=== PATIENT | female | born 1990 | race African-American/Black ===

== ENCOUNTER 2017-03-28 13:50 | Emergency (ER) | payer MEDICAID, OTHER ==
[~2017-03-28] VITALS: Ht 160 cm; Wt 90.7 kg
[~2017-03-28 13:50] MED LIST: IBUPROFEN600 MG ORAL; LIDOCAINE VISCO20 ML PO; PENICILLIN V P500 MG PO
[2017-03-28] MEDS ORDERED: PredniSONE 20mg tab ORAL ONE (14:45)
[2017-03-28] MEDS ORDERED: AUGMENTIN 500-1 EACH ORAL (14:48)
[2017-03-28] MEDS ORDERED: PREDNISONE20 MG ORAL (14:48)
[2017-03-28 15:05] VITALS: BP 113/62
--- NOTE | 2017-03-28 18:53 | Emergency Room Report ---
History of Present Illness General Chief Complaint: Sore Throat Source: Patient Present Illness HPI The patient is a 26 old female presenting with sore throat and fever for the past 2 days. She denies any sick contacts or recent travel. She states that she has tonsillitis several times every year and has seen an ENT who did not want to perform tonsillectomy. Pain is described as a 10 out of 10 dull ache to the back of the throat and does not radiate. It worse with swallowing. She denies any other symptoms including N, V, neck pain/stiffness, AGUILAR, rash, ear pain, SOB Allergies: Coded Allergies: No Known Allergies (Unverified , 01/10/16) Patient History Past Medical History: see triage record Pertinent Family History: none Last Menstrual Period: now Now: No Reviewed Nursing Documentation: PMH: Agreed, PSxH: Agreed Nursing Documentation-PMH Past Medical History: No Stated History Review of Systems All Other Systems: negative except mentioned in HPI Physical Exam Vital Signs Date Time Temp Pulse Resp B/P Pulse Ox O2 Delivery O2 Flow Rate FiO2 03/28/17 13:55 102.4 119 20 126/79 97 Room Air Sp02 EP Interpretation: reviewed, normal General Appearance: no apparent distress, alert, GCS 15, non-toxic Head: normocephalic, atraumatic Eyes: bilateral eye PERRL, bilateral eye normal inspection ENT: hearing grossly normal, no angioedema, normal voice, uvula midline, moist mucus membranes, tonsillar swelling, pharyngeal erythema Neck: full range of motion, supple/symm/no masses Respiratory: chest non-tender, lungs clear, normal breath sounds, no wheezing, speaking full sentences Cardiovascular #1: regular rate, rhythm, no edema Musculoskeletal: back normal, gait/station normal, normal range of motion, non- tender Neurologic: alert, oriented x3, responsive, motor strength/tone normal, sensory intact, speech normal Psychiatric: judgement/insight normal, memory normal, mood/affect normal, no suicidal/homicidal ideation Skin: normal color, no rash, warm/dry, well hydrated Lymphatic: adenopathy - cervical Medical Decision Making PA Attestation Dr. Rodriguez is my supervising physician. Patient management was discussed with my supervising physician Diagnostic Impression: Primary Impression: Pharyngitis, acute Qualified Codes: J02.9 - Acute pharyngitis, unspecified ER Course The patient is a 26 old female presenting with sore throat and fever Differential diagnosis include but not limited to pharyngitis, sinusitis, AOM, bronchitis, PNA Physical exam: Pt is febrile. No apparent distress HEENT exam: There is bilateral tonsillar edema, erythema. Uvula midline. Moist mucous membranes. There is bilateral cervical lymphadenopathy. Lungs are clear to auscultation bilaterally Skin is warm and dry. No rash The pt is given steroids, motrin, and amoxicillin in the ED The pt will be WA'ed home with prescription for steroids and Augmentin due to recurrent pharyngitis. She will need to see ENT for further evaluation. Given ER precautions. Patient will followup with primary care Last Vital Signs Date Time Temp Pulse Resp B/P Pulse Ox O2 Delivery O2 Flow Rate FiO2 03/28/17 15:05 101.0 110 18 113/62 99 Room Air Status: improved Disposition: HOME, SELF-CARE Condition: Improved Scripts Prednisone* (PREDNISONE*) 20 Mg Tablet 40 MG ORAL DAILY, #10 TAB Prov: DONNA DONOVAN 03/28/17 Amoxicillin/Potassium Clav 500-125 Tablet* (AUGMENTIN 500-125 TABLET*) 1 Each Tablet 1 TAB ORAL THREE TIMES A DAY, #21 TAB Prov: DONNA DONOVAN. 03/28/17 Referrals: KAYLEIGH GRANDA,REFERRING Patient Instructions: Pharyngitis Additional Instructions: I discussed my findings with the patient. All questions and concerns have been answered. Treatment and medication compliance have been addressed. I advised the patient that they need to follow up with PMD in 3-5 days. Return to ED if pain remains or worsens, cough worsens or remains, you notice blood in your sputum, you notice wheezing, you experience a fever, or if needed for any reason. Patient verbalized understanding of discharge instructions. DONNA DONOVAN Mar 28, 2017 18:53
== END 2017-03-28 15:05 | disposition home or self-care (01) ==
LOC: EMR 14:45
DX: J02.9 Acute pharyngitis, unspecified (principal); R50.9 Fever, unspecified
CPT/HCPCS: 99284

== ENCOUNTER 2018-04-11 08:52 | Emergency (ER) | payer SELFPAY ==
[~2018-04-11] VITALS: Ht 160 cm; Wt 93.9 kg
[~2018-04-11 08:52] MED LIST changes: +AUGMENTIN 500-1 EACH ORAL; +PREDNISONE20 MG ORAL
[2018-04-11] MEDS ORDERED: NKM (08:57)
[2018-04-11 09:04] VITALS: BP 128/69
[2018-04-11] MEDS ORDERED: Morphine Sulfate 4mg/ml Inj IVP ONE (09:15)
[2018-04-11 09:39] LABS: BASOPHILS % (AUTO) 0.6 % (0.0-2.0); EOSINOPHILS % (AUTO) 0.7 % (0.0-3.0); HEMATOCRIT 46.4 % (37.0-47.0); MEAN CORPUSCULAR VOLUME 82 FL (80-99); MONOCYTES % (AUTO) 5.5 % (1.0-10.0); NEUTROPHILS % (AUTO) 76.3 % (45.0-75.0); PLATELET COUNT 427 K/UL (150-450); RED BLOOD COUNT 5.65 M/UL (4.20-5.40); RED CELL DISTRIBUTION WIDTH 11.5 % (11.6-14.8); WHITE BLOOD COUNT 12.6 K/UL (4.8-10.8)
[2018-04-11 09:53] LABS: ANION GAP 8 mmol/L (5-15); BLOOD UREA NITROGEN 14 mg/dL (7-18); CALCIUM 9.6 MG/DL (8.5-10.1); CARBON DIOXIDE 25 MMOL/L (21-32); CHLORIDE 105 MMOL/L (98-107); CREATININE 1.1 MG/DL (0.55-1.30); POTASSIUM 3.7 MMOL/L (3.5-5.1); SODIUM 138 MMOL/L (136-145)
[2018-04-11 09:56] LABS: APPEARANCE,URINE SLIGHTLY CLOUDY; BILIRUBIN, URINE NEGATIVE (NEGATIVE); COLOR,URINE PALE YELLOW; GLUCOSE, URINE (UA) NEGATIVE (NEGATIVE); KETONES,URINE NEGATIVE (NEGATIVE); LEUKOCYTE ESTERASE ,URINE NEGATIVE (NEGATIVE); NITRITE,URINE NEGATIVE (NEGATIVE); PH,URINE 7 (4.5-8.0); PROTEIN,URINE NEGATIVE (NEGATIVE); UROBILINOGEN,URINE NORMAL MG/DL (0.0-1.0)
[2018-04-11 09:58] LABS: ALANINE AMINOTRANSFERASE 21 U/L (12-78); ALBUMIN 3.6 G/DL (3.4-5.0); ALBUMIN/GLOBULIN RATIO 0.7 (1.0-2.7); ALKALINE PHOSPHATASE 57 U/L (46-116); ASPARTATE AMINO TRANSFERASE 14 U/L (15-37); BILIRUBIN,TOTAL 0.4 MG/DL (0.2-1.0)
[2018-04-11] MEDS ORDERED: Isovue-300 100ml vial INJ PRN (10:00)
[2018-04-11 10:59] VITALS: BP 107/56
--- NOTE | 2018-04-11 11:33 | Diagnostic Imaging Report ---
Clinical Indication: Lower abdominal pain, vomiting, nausea Technique: No oral contrast utilized, per emergency room physician request IV administration nonionic contrast. Venous phase spiral acquisition obtained through the abdomen and pelvis. Multiplanar reconstructions were generated. Total dose length product 1850.84 mGycm. CTDIvol(s) 17.73,17.93 mGy. Dose reduction achieved using automated exposure control Comparison: none Findings: Normal appendix. Equivocal mild wall thickening of the distal transverse and descending colon, most likely artifact of under distention however, there is some inflammatory change surrounding the distal sigmoid colon and posterior to the uterus. The uterus and adnexal structures themselves appear unremarkable. No small bowel distention. There is trace free pelvic fluid. No other free or loculated intraperitoneal air or fluid is evident. Distal esophagus, stomach, duodenum are unremarkable. The liver, gallbladder, bile ducts, pancreas, spleen, adrenals, kidneys, ureters, bladder are all unremarkable. No pelvic mass or adenopathy. No retroperitoneal or mesenteric mass or adenopathy. The included lung bases are clear. The bones are unremarkable.. Impression: Equivocal wall thickening of the mid transverse through the sigmoid colon. Probably an artifact of under distention. However, there is some inflammatory change in the pelvic fat noted so this could indicate sigmoid colitis. This could also be related to inflammation of the pelvic viscera, although the uterus and ovaries themselves appear unremarkable. Correlate with clinical findings, consider pelvic sonography for further evaluation if indicated clinically No other acute or significant abnormality The CT scanner at [facility] is accredited by the [employer] and the scans are performed using protocols designed to limit radiation exposure to as low as reasonably achievable to attain images of sufficient resolution adequate for diagnostic evaluation.
[2018-04-11] MEDS ORDERED: DOXYCYCLINE MO100 MG ORAL (12:03)
[2018-04-11] MEDS ORDERED: IBUPROFEN600 MG ORAL (12:05)
--- NOTE | 2018-04-11 12:10 | Emergency Room Report ---
History of Present Illness General Chief Complaint: Abdominal Pain Source: Patient Present Illness HPI 27-year-old female with no major medical problems presents with lower abdominal pain since yesterday, she reports she was diagnosed with pelvic inflammatory disease, and the only antibiotic prescription she was given was metronidazole. She reports she took a dose yesterday, and then she had abdominal pain and vomited once, she still having pain subsided to come in. She denies any abnormal vaginal discharge, and denies any dysuria, but reports the pain is localized to the suprapubic area, not to either side, and reports it constant and achy, and she was concerned it may be her appendix. She does admit to having a recent one month ago. Allergies: Coded Allergies: No Known Allergies (Unverified , 01/10/16) Patient History Past Medical History: see triage record Last Menstrual Period: 12/28/2017 Now: No : 2 Para: 1 Reviewed Nursing Documentation: PMH: Agreed; PSxH: Agreed Nursing Documentation-PMH Past Medical History: No Stated History Review of Systems All Other Systems: negative except mentioned in HPI Physical Exam Vital Signs Date Time Temp Pulse Resp B/P (MAP) Pulse Ox O2 Delivery O2 Flow Rate FiO2 04/11/18 08:54 98.3 78 19 120/67 97 Room Air 98.2 Sp02 EP Interpretation: reviewed, normal General Appearance: no apparent distress, alert, non-toxic Head: normocephalic Eyes: bilateral eye normal inspection, bilateral eye PERRL, bilateral eye EOMI ENT: normal ENT inspection, hearing grossly normal, normal pharynx, no angioedema, normal voice, moist mucus membranes Neck: normal inspection, full range of motion, supple, supple/symm/no masses Respiratory: chest non-tender, lungs clear, normal breath sounds, chest symmetrical, palpation of chest normal Cardiovascular #1: normal peripheral pulses, regular rate, rhythm Cardiovascular #2: 2+ radial (R), 2+ radial (L) Gastrointestinal: normal inspection, soft, no mass, no guarding, no rebound, tenderness - Suprapubic midline moderate tenderness Rectal: deferred Genitourinary: normal inspection, no CVA tenderness Musculoskeletal: back normal, gait/station normal, normal range of motion, non- tender, no calf tenderness Neurologic: alert, responsive, tomahawk weapon system operator III-XII nml as tested, motor strength/tone normal, sensory intact, speech normal Psychiatric: judgement/insight normal, memory normal, mood/affect normal, no suicidal/homicidal ideation Skin: normal color, no rash, warm/dry, normal turgor Lymphatic: no adenopathy Medical Decision Making Diagnostic Impression: Primary Impression: PID (acute pelvic inflammatory disease) ER Course Patient was given Rocephin, and a prescription for doxycycline to add to her metronidazole regimen. I recommended that she avoid any alcohol given that she is taking metronidazole, she understood and agreed. She still has some mildly tender superior carry on examination, but her CT scan shows no evidence of appendicitis; she has a negative urine test, and a white count of 12. I will discharge her at this time with instructions to follow-up with her doctor again in 2-3 days, and to add on the doxycycline [address]/MRI/US Diagnostic Results CT/MRI/US Diagnostic Results : Imaging Test Ordered: ct abd/pelvis with iv contrast Impression sigmoid colon with inflammation vs. underdistention, otherwise no acute dz Last Vital Signs Date Time Temp Pulse Resp B/P (MAP) Pulse Ox O2 Delivery O2 Flow Rate FiO2 04/11/18 10:59 67 20 107/56 99 Room Air 04/11/18 09:43 98.3 Disposition: HOME, SELF-CARE Condition: Stable Scripts Ibuprofen* (MOTRIN*) 600 Mg Tablet 600 MG ORAL Q8H PRN for For Pain, #20 TAB 0 Refills Prov: NEO BAUER M.D 04/11/18 Doxycycline Monohydrate* (DOXYCYCLINE MONOHYDRATE*) 100 Mg Capsule 100 MG ORAL Q12H for 14 Days, #28 CAP 0 Refills Prov: NEO BAUER M.D 04/11/18 Departure Forms: Return to Work Return to Work in (Days): 2 Patient Instructions: Pelvic Inflammatory Disease, [place] NEO BAUER M.D Apr 11, 2018 12:10
[2018-04-11] MEDS ORDERED: Lidocaine 1% MPF 10mg/ml 5ml INJ ONE (12:15)
[2018-04-11 12:25] VITALS: BP 111/56
[2018-04-11 12:30] VITALS: BP 111/56
== END 2018-04-11 12:30 | disposition home or self-care (01) ==
LOC: EMR 09:17 → CANBEDREQ 12:52
DX: N73.9 Female pelvic inflammatory disease, unspecified (principal)
CPT/HCPCS: 36415; 74177; 80053; 81003; 81025; 83690; 85025; 96360; 96372; 96374; 96375; 99284; J0696; J2270; J2405; Q9967